=== PATIENT | male | born 1980 | race Caucasian/White ===

== ENCOUNTER 2018-12-13 19:46 | Emergency (ER) | payer OTHER ==
[~2018-12-13] VITALS: Ht 190.5 cm; Wt 104.3 kg
[~2018-12-13 19:46] MED LIST: B/P MEDS; HYDR-4226 PO; NAPR-1071 PO; norflex PO
--- NOTE | 2018-12-13 20:01 | NUR ---
PT REFUSES IV AND IVF STATING, "I DON'T WANT TO RUIN MY HIGH. I PAID A LOT OF MONEY FOR THIS IV METH AND I DON'T WANT TO LOSE IT."
[2018-12-13] MEDS ORDERED: NS IV 1000 ML 1,000 ML IV ONE (20:04)
[2018-12-13] MEDS ORDERED: IOHEXOL 350 MG/ML 100 ML (OMNIPAQUE 350) VIAL IV ONE (20:15)
[2018-12-13] MEDS ORDERED: HOLD METFORMIN - RECEIVED CONTRAST 20 ML VIAL IV SCH (20:15)
[2018-12-13] MEDS ORDERED: NS 100 ML (IVPB) BAG IV ONE (20:15)
[2018-12-13 20:22] LABS: BASOPHILS % (AUTO) 0 % (0-10); EOSINOPHILS # (AUTO) 0.4 10^3/uL (0.0-0.3); EOSINOPHILS % (AUTO) 7 % (0-10); HEMATOCRIT 44 % (40-54); HEMOGLOBIN 15.1 G/DL (13.3-17.7); LYMPHOCYTES # (AUTO) 1.2 X 10^3 (1.0-4.0); LYMPHOCYTES % (AUTO) 22 % (12-44); MEAN CORPUSCULAR HEMOGLOBIN 32 PG (25-34); MEAN CORPUSCULAR HGB CONC 34 G/DL (32-36); MEAN CORPUSCULAR VOLUME 94 FL (80-99); MEAN PLATELET VOLUME 9.8 FL (7.4-10.4); MONOCYTES # (AUTO) 0.3 X 10^3 (0.0-1.0); MONOCYTES % (AUTO) 5 % (0-12); NEUTROPHILS # (AUTO) 3.4 X 10^3 (1.8-7.8); NEUTROPHILS % (AUTO) 66 % (42-75); PLATELET COUNT 184 10^3/uL (130-400); WHITE BLOOD COUNT 5.2 10^3/uL (4.3-11.0)
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
[2018-12-13 20:40] LABS: ALANINE AMINOTRANSFERASE 31 U/L (0-55); ALBUMIN 4.8 GM/DL (3.2-4.5); ALKALINE PHOSPHATASE 50 U/L (40-136); BILIRUBIN,TOTAL 0.4 MG/DL (0.1-1.0); BUN/CREATININE RATIO 12; CALCIUM 9.4 MG/DL (8.5-10.1); CARBON DIOXIDE 24 MMOL/L (21-32); CHLORIDE 107 MMOL/L (98-107); CREATININE SERUM 1.08 MG/DL (0.60-1.30); GFR ESTIMATED > 60; GLUCOSE 105 MG/DL (70-105); POTASSIUM 4.3 MMOL/L (3.6-5.0); SODIUM 144 MMOL/L (135-145); TOTAL PROTEIN 7.3 GM/DL (6.4-8.2)
[2018-12-13 21:00] VITALS: BP 159/100
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
== END 2018-12-13 21:05 | disposition left against medical advice (07) ==
LOC: EDUNIT# 19:46 → ER 19:48
DX: F15.10 Other stimulant abuse, uncomplicated (principal); F11.10 Opioid abuse, uncomplicated; F14.10 Cocaine abuse, uncomplicated; F19.10 Other psychoactive substance abuse, uncomplicated; R00.0 Tachycardia, unspecified; R07.89 Other chest pain; I10 Essential (primary) hypertension; F17.210 Nicotine dependence, cigarettes, uncomplicated; V19.9XXA Pedal cyclist (driver) (passenger) injured in unspecified traffic accident, initial encounter
CPT/HCPCS: 36415; 71046; 71100; 80053; 80320; 85025

== ENCOUNTER 2018-12-17 14:30 | Emergency (ER) | payer OTHER ==
[~2018-12-17] VITALS: Ht 190.5 cm; Wt 104.3 kg
[2018-12-17] MEDS ORDERED: HYDROcodone/APAP 5 MG/325 MG (LORTAB) TAB PO ONE (14:45)
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
[2018-12-17] MEDS ORDERED: NS IV 1000 ML 1,000 ML IV SCH (14:57)
[2018-12-17 15:08] LABS: BASOPHILS % (AUTO) 0 % (0-10); EOSINOPHILS # (AUTO) 0.2 10^3/uL (0.0-0.3); EOSINOPHILS % (AUTO) 3 % (0-10); HEMATOCRIT 43 % (40-54); HEMOGLOBIN 14.7 G/DL (13.3-17.7); LYMPHOCYTES % (AUTO) 17 % (12-44); MEAN CORPUSCULAR HEMOGLOBIN 32 PG (25-34); MEAN CORPUSCULAR HGB CONC 35 G/DL (32-36); MEAN CORPUSCULAR VOLUME 92 FL (80-99); MEAN PLATELET VOLUME 9.3 FL (7.4-10.4); MONOCYTES # (AUTO) 0.4 X 10^3 (0.0-1.0); MONOCYTES % (AUTO) 6 % (0-12); NEUTROPHILS # (AUTO) 4.3 X 10^3 (1.8-7.8); NEUTROPHILS % (AUTO) 73 % (42-75); PLATELET COUNT 176 10^3/uL (130-400); RED CELL DISTRIBUTION WIDTH 12.7 % (10.0-14.5); WHITE BLOOD COUNT 5.9 10^3/uL (4.3-11.0)
[2018-12-17] MEDS ORDERED: IOHEXOL 350 MG/ML 100 ML (OMNIPAQUE 350) VIAL IV ONE (15:15)
[2018-12-17] MEDS ORDERED: HOLD METFORMIN - RECEIVED CONTRAST 20 ML VIAL IV SCH (15:15)
[2018-12-17] MEDS ORDERED: NS 100 ML (IVPB) BAG IV ONE (15:15)
[2018-12-17 15:25] LABS: ALANINE AMINOTRANSFERASE 20 U/L (0-55); ALBUMIN 4.4 GM/DL (3.2-4.5); ALKALINE PHOSPHATASE 47 U/L (40-136); BILIRUBIN,TOTAL 0.7 MG/DL (0.1-1.0); BUN/CREATININE RATIO 16; CALCIUM 8.8 MG/DL (8.5-10.1); CARBON DIOXIDE 23 MMOL/L (21-32); CHLORIDE 106 MMOL/L (98-107); CREATININE SERUM 0.79 MG/DL (0.60-1.30); GFR ESTIMATED > 60; GLUCOSE 116 MG/DL (70-105); SODIUM 139 MMOL/L (135-145); TOTAL PROTEIN 6.7 GM/DL (6.4-8.2)
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
[2018-12-17] MEDS ORDERED: NAPR-1071 PO (15:44)
[2018-12-17 15:51] VITALS: BP 128/82
== END 2018-12-17 15:51 | disposition home or self-care (01) ==
LOC: EDUNIT# 14:30 → ER 14:32
DX: R16.1 Splenomegaly, not elsewhere classified (principal); I10 Essential (primary) hypertension; Z87.891 Personal history of nicotine dependence; V19.9XXA Pedal cyclist (driver) (passenger) injured in unspecified traffic accident, initial encounter
CPT/HCPCS: 36415; 74177; 80053; 85025

== ENCOUNTER 2019-01-26 16:48 | Emergency (ER) | payer OTHER ==
[~2019-01-26] VITALS: Ht 190.5 cm; Wt 104.3 kg
--- NOTE | 2019-01-26 17:07 | ED General ---
General Stated Complaint: OFF OF ANTIDEPRESSANTS AND ANXIETY RX Source of Information: Patient (ELI CARDONA DO) History of Present Illness Date Seen by Provider: Jan 26, 2019 Time Seen by Provider: 17:02 Initial Comments 38-year-old male presents with depression, situational stress and suicidal ideation. 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 Patient was kicked out of his home according to PD. Patient reports that he is off his medication for depression and anxiety. Patient does not report a suicidal plan. Patient does have previous attempts and previous hospitalizations. (ELI CARDONA DO) Allergies and Home Medications Allergies Coded Allergies: No Known Drug Allergies (Unverified , 11/24/15) Home Medications Hydrocodone/Acetaminophen 1 Each Tablet, 1 EACH PO Q4H PRN for PAIN Prescribed by: SIXTO DELGADO on 11/24/15 1245 Naproxen 500 Mg Tablet, 500 MG PO BID Prescribed by: SIXTO DELGADO on 11/24/15 1107 Naproxen 500 Mg Tablet, 500 MG PO BID Prescribed by: ROMAN GRANADOS on 12/17/18 1544 [norflex] , 100 MG PO BID PRN for PAIN Prescribed by: SIXTO DELGADO on 11/24/15 1107 Patient Home Medication List Home Medication List Reviewed: Yes (ELI CARDONA DO) Review of Systems Review of Systems Constitutional: No chills, No fever EENTM: no symptoms reported Respiratory: no symptoms reported Cardiovascular: no symptoms reported Gastrointestinal: no symptoms reported Genitourinary: no symptoms reported Skin: no symptoms reported Psychiatric/Neurological: See HPI, Anxiety, Depressed (ELI CARDONA DO) Past Cjzltfn-Czsyri-Arunnk Hx Past Med/Social Hx: Reviewed Nursing Past Med/Soc Hx (ELI CARDONA DO) Patient Social History Alcohol Beverage of Choice: Vodka Drug of Choice: OPIATES, IV METH, COCAINE, DILAUDID Type Used: Cigarettes, Smokeless Tobacco 2nd Hand Smoke Exposure: No Recent Foreign Travel: No Contact w/Someone Who Travel: No Recent Hopitalizations: No (ELI CARDONA DO) Seasonal Allergies Seasonal Allergies: No (ELI CARDONA DO) Past Medical History Surgeries: No Respiratory: No Cardiac: Yes Hypertension Neurological: No Sexually Transmitted Disease: No HIV/AIDS: No Genitourinary: No Gastrointestinal: No Musculoskeletal: No Endocrine: No HEENT: No Cancer: No Psychosocial: No Integumentary: No Blood Disorders: No (CARDONA,ELI L DO) Physical Exam Vital Signs Vital Signs - First Documented 01/26/19 17:05 Temp 97.6 Pulse 89 Resp 18 B/P (MAP) 139/94 (109) Pulse Ox 98 O2 Delivery Room Air (ROMAN GRANADOS) Vital Signs Capillary Refill : (CARDONA,ELI L DO) Height, Weight, BMI Height: 6'3.00" Weight: 230lbs. oz. 104.675956sn; BMI Method:Stated General Appearance: No Apparent Distress, WD/WN Eyes: Bilateral Eye Normal Inspection, Bilateral Eye PERRL Neck: Non Tender Respiratory: Chest Non Tender, Lungs Clear, Normal Breath Sounds Cardiovascular: Regular Rate, Rhythm Gastrointestinal: Non Tender, Soft Extremity: Normal Capillary Refill Neurologic/Psychiatric: Alert, Oriented x3, No Motor/Sensory Deficits Skin: Tattoos/Piercings (track stephanie in left antecubital space) (CARDONA,ELI L DO) Progress/Results/Core Measures Suspected Sepsis SIRS Temperature: Pulse: Respiratory Rate: Blood Pressure / Mean: (CARDONA,ELI L DO) Results/Orders Lab Results Laboratory Tests Test 01/26/19 17:11 01/26/19 18:26 Range/Units White Blood Count 6.5 4.3-11.0 10^3/uL Red Blood Count 4.34 L 4.35-5.85 10^6/uL Hemoglobin 13.7 13.3-17.7 G/DL Hematocrit 39 L 40-54 % Mean Corpuscular Volume 90 80-99 FL Mean Corpuscular Hemoglobin 32 25-34 PG Mean Corpuscular Hemoglobin Concent 35 32-36 G/DL Red Cell Distribution Width 13.7 10.0-14.5 % Platelet Count 188 130-400 10^3/uL Mean Platelet Volume 9.0 7.4-10.4 FL Neutrophils (%) (Auto) 67 42-75 % Lymphocytes (%) (Auto) 19 12-44 % Monocytes (%) (Auto) 7 0-12 % Eosinophils (%) (Auto) 6 0-10 % Basophils (%) (Auto) 0 0-10 % Neutrophils # (Auto) 4.3 1.8-7.8 X 10^3 Lymphocytes # (Auto) 1.2 1.0-4.0 X 10^3 Monocytes # (Auto) 0.5 0.0-1.0 X 10^3 Eosinophils # (Auto) 0.4 H 0.0-0.3 10^3/uL Basophils # (Auto) 0.0 0.0-0.1 10^3/uL Sodium Level 140 135-145 MMOL/L Potassium Level 3.5 L 3.6-5.0 MMOL/L Chloride Level 103 98-107 MMOL/L Carbon Dioxide Level 24 21-32 MMOL/L Anion Gap 13 5-14 MMOL/L Blood Urea Nitrogen 14 7-18 MG/DL Creatinine 0.91 0.60-1.30 MG/DL Estimat Glomerular Filtration Rate > 60 BUN/Creatinine Ratio 15 Glucose Level 125 H 70-105 MG/DL Calcium Level 9.0 8.5-10.1 MG/DL Corrected Calcium 8.8 8.5-10.1 MG/DL Total Bilirubin 0.8 0.1-1.0 MG/DL Aspartate Amino Transf (AST/SGOT) 20 5-34 U/L Alanine Aminotransferase (ALT/SGPT) 23 0-55 U/L Alkaline Phosphatase 51 40-136 U/L Total Protein 6.7 6.4-8.2 GM/DL Albumin 4.2 3.2-4.5 GM/DL Salicylates Level < 5.0 L 5.0-20.0 MG/DL Acetaminophen Level < 10 L 10-30 UG/ML Serum Alcohol < 10 <10 MG/DL Urine Color JAS H Urine Clarity CLEAR Urine pH 5 5-9 Urine Specific [place] 1.030 H 1.016-1.022 Urine Protein 2+ H NEGATIVE Urine Glucose (UA) NEGATIVE NEGATIVE Urine Ketones 1+ H NEGATIVE Urine Nitrite NEGATIVE NEGATIVE Urine Bilirubin 1+ H NEGATIVE Urine Urobilinogen 1 NORMAL MG/DL Urine Leukocyte Esterase 1+ H NEGATIVE Urine RBC (Auto) NEGATIVE NEGATIVE Urine RBC NONE /HPF Urine WBC 2-5 /HPF Urine Squamous Epithelial Cells NONE /HPF Urine Renal Epithelial Cells 0-2 /HPF Urine Crystals NONE /LPF Urine Bacteria LARGE H /HPF Urine Casts NONE /LPF Urine Mucus LARGE H /LPF Urine Culture Indicated NO Urine Opiates Screen NEGATIVE NEGATIVE Urine Oxycodone Screen NEGATIVE NEGATIVE Urine Methadone Screen NEGATIVE NEGATIVE Urine Propoxyphene Screen NEGATIVE NEGATIVE Urine Barbiturates Screen NEGATIVE NEGATIVE Ur Tricyclic Antidepressants Screen NEGATIVE NEGATIVE Urine Phencyclidine Screen NEGATIVE NEGATIVE Urine Amphetamines Screen POSITIVE H NEGATIVE Urine Methamphetamines Screen NEGATIVE NEGATIVE Urine Benzodiazepines Screen NEGATIVE NEGATIVE Urine Cocaine Screen NEGATIVE NEGATIVE Urine Cannabinoids Screen NEGATIVE NEGATIVE (ROMAN GRANADOS) My Orders Orders - ROMAN GRANADOS General/Regular (01/27/19 Breakfast) (ROMAN GRANADOS) Vital Signs/I&O 01/26/19 01/26/19 17:05 23:15 Temp 97.6 97.6 Pulse 89 89 Resp 18 18 B/P (MAP) 139/94 (109) 139/94 (109) Pulse Ox 98 98 O2 Delivery Room Air (ROMAN GRANADOS) Vital Signs/I&O Capillary Refill : (ELI CARDONA DO) Progress Note #1: Time: 17:57 Progress Note Assume care of the patient at shift change. Discussed the case with Dr. Cardona and discussed the case with patient and agree with the above documented history and physical exam and review of systems. Patient has stated that he would step out of the car or/his wrists like he has attempted the past. He admits that he uses methamphetamines by ingestion, smoking and injection and his last use was sometime this morning. He is very depressed as been off his medications which include propranolol, Seroquel and a third unknown medication. He sees someone at [facility] for his medication. He is not sure how long he been off of them. He is voluntary to go to a inpatient psychiatric facility and feels this is the best course. We have provided him with some oral fluids in an attempt to encourage him to produce a urine specimen. Progress Note #2: Time: 23:36 Progress Note Patient has been cooperative, sleeping most of the time. We have attempted to find him placement at [facility] but they're both at capacity. [place] is also at capacity. The looked at [facility] but they have 13 cases in their ER to go through first. [facility] has declined. Sonido Dash at [place] said they will call us back. If we don't hear from them in the next hour we will call them. If we cannot find placement for him were going to call [facility] and have the screener come out and talk to the patient about possibly going home. Progress Note #3: Time: 00:15 Progress Note Sonido Dash called. Vitals from the patient which are normal 64 heart rate, 14 rest burst, 99% on room air no pain in the 122/72 still endorsing suicidal ideations passively. They want to speak to the patient so we put him on the phone with him. Progress Note #4: Time: 01:46 Progress Note Isabel olivares arrived to pickle sorter the patient however the patient asked to have his belt since his pants were falling down. Staff, explained that since he is suicidal we will not be giving him his belt as it could be used to harm himself and the patient became argumentative and started cussing and said that he had his lorenzo before and wants her back now since its his personal belongings. Because he threw a fit and refused to cooperate tracing all has declined the transport this time. There is no one available transport. We have called [facility] and they are going to come out and screen him for a safety plan. Progress Note #5: Time: 02:40 Progress Note [facility] screener has arrived has spoke with the patient and no safety plan can be arrived at because the patient says if he leaves here he will kill himself. He is no longer being actively belligerent and has been offered a meal which he accepted. We attempted tracing knowing can and he has declined transport the patient. We have talked to [facility] Dash and they do not have a transporter. (ROMAN GRANADOS) Progress Note #1: Time: 07:01 Progress Note Patient resting peacefully. Awoke for exam. Heart is regular in rate and rhythm and lungs are clear to auscultation. He has no complaints of pain or concerns. Offered breakfast. We're still pending transfer and we are trying to determine mode of transportation. His stepfather was called and he has declined to do the transport. We are still waiting with [facility] to see if they have somebody available for transport and patient. At this point we still have a bed available at [facility] in [place]. Continue to monitor. Progress Note #2: Time: 08:54 Progress Note Patient awoke and became quite aggressive both verbally and pacing which was very concerning for staff. He was not really resolving with verbal calming measures and there is concern for safety of staff and other patients so police were called. They have arrived. Patient patient is still quite aggressive. I was able to give him some Zyprexa earlier and he took that. It is not working as of yet. Patient is quite disorderly and long force will take the patient to detention awaiting transfer with [facility]. Patient is medically cleared for inpatient psychiatric treatment. Discharged with law enforcement. (TYREL HU MD) ECG Initial ECG Impression Date: Jan 26, 2019 Initial ECG Impression Time: 17:04 Initial ECG Rhythm: Normal Sinus Initial ECG Intervals: QRS (116) Initial ECG Impression: Nonspecific Changes Initial ECG Comparisson: No Previous ECG Available (ELI CARDONA DO) Departure Impression Primary Impression: Depression with suicidal ideation Additional Impressions: Aggressive behavior of adult Drug abuse Disposition: [address]/LAW ENFORCE Condition: Stable Transfer Time Spoke to Accepting Phy: 00:[address] Pir Purdy accepting for unspecified depressive disorder to [facility]. room assignment made. Isabel Saeed Will be here to transport in 30 minutes. Transfer Facility: [facility] Method of Transfer: Private Vehicle ([facility]) (ROMAN GRANADOS) Departure-Patient Inst. Decision time for Depature: 08:58 (TYREL HU MD) Referrals: [facility] (PCP/Family) Primary Care Physician Patient Instructions: Depression, Adult (DC), Drug Abuse and Drug Addiction (DC) Add. Discharge Instructions: Discharge with law enforcement. You are medically cleared for incarceration and for mental health inpatient treatment. Return for other concerns as needed. ELI CARDONA DO Jan 26, 2019 17:06 ROMAN GRANADOS Jan 26, 2019 18:00 TYREL HU MD Jan 27, 2019 07:52
[2019-01-26 17:27] LABS: BASOPHILS % (AUTO) 0 % (0-10); EOSINOPHILS # (AUTO) 0.4 10^3/uL (0.0-0.3); EOSINOPHILS % (AUTO) 6 % (0-10); HEMATOCRIT 39 % (40-54); HEMOGLOBIN 13.7 G/DL (13.3-17.7); LYMPHOCYTES # (AUTO) 1.2 X 10^3 (1.0-4.0); LYMPHOCYTES % (AUTO) 19 % (12-44); MEAN CORPUSCULAR HEMOGLOBIN 32 PG (25-34); MEAN CORPUSCULAR HGB CONC 35 G/DL (32-36); MEAN CORPUSCULAR VOLUME 90 FL (80-99); MONOCYTES # (AUTO) 0.5 X 10^3 (0.0-1.0); MONOCYTES % (AUTO) 7 % (0-12); NEUTROPHILS # (AUTO) 4.3 X 10^3 (1.8-7.8); NEUTROPHILS % (AUTO) 67 % (42-75); PLATELET COUNT 188 10^3/uL (130-400); RED CELL DISTRIBUTION WIDTH 13.7 % (10.0-14.5); WHITE BLOOD COUNT 6.5 10^3/uL (4.3-11.0)
[2019-01-26 17:42] LABS: ALANINE AMINOTRANSFERASE 23 U/L (0-55); ALBUMIN 4.2 GM/DL (3.2-4.5); ALKALINE PHOSPHATASE 51 U/L (40-136); BILIRUBIN,TOTAL 0.8 MG/DL (0.1-1.0); BUN/CREATININE RATIO 15; CARBON DIOXIDE 24 MMOL/L (21-32); CHLORIDE 103 MMOL/L (98-107); CREATININE SERUM 0.91 MG/DL (0.60-1.30); GFR ESTIMATED > 60; GLUCOSE 125 MG/DL (70-105); POTASSIUM 3.5 MMOL/L (3.6-5.0); SALICYLATE < 5.0 MG/DL (5.0-20.0); SODIUM 140 MMOL/L (135-145); TOTAL PROTEIN 6.7 GM/DL (6.4-8.2)
[2019-01-26 18:12] LABS: ACETAMINOPHEN < 10 UG/ML (10-30)
--- NOTE | 2019-01-26 18:27 | NUR ---
[facility] NOTIFIED FOR SCREENING. FACE SHEET FAXED AT THIS TIME.
[2019-01-26 18:32] LABS: BILIRUBIN,URINE 1+ (NEGATIVE); CLARITY,URINE CLEAR; COLOR,URINE AMBER; GLUCOSE, URINE (UA) NEGATIVE (NEGATIVE); KETONES,URINE 1+ (NEGATIVE); LEUKOCYTE ESTERASE ,URINE 1+ (NEGATIVE); NITRITE,URINE NEGATIVE (NEGATIVE); PH,URINE 5 (5-9); PROTEIN,URINE 2+ (NEGATIVE); UROBILINOGEN,URINE 1 MG/DL (NORMAL)
[2019-01-26 18:44] LABS: AMPHETAMINE SCREEN, URINE POSITIVE (NEGATIVE); BARBITURATE SCREEN URINE NEGATIVE (NEGATIVE); BENZODIAZEPINES SCREEN URINE NEGATIVE (NEGATIVE); CANNABINOID SCREEN, URINE NEGATIVE (NEGATIVE); COCAINE SCREEN URINE NEGATIVE (NEGATIVE); METHADONE STAT NEGATIVE (NEGATIVE); METHAMPHETAMINE SCREEN URINE S NEGATIVE (NEGATIVE); OPIATE SCREEN URINE NEGATIVE (NEGATIVE); OXYCODONE STAT NEGATIVE (NEGATIVE); PROPOXYPHENE STAT NEGATIVE (NEGATIVE); TRICYCLIC ANTIDEPRESSANTS SCRE NEGATIVE (NEGATIVE)
--- NOTE | 2019-01-26 18:44 | NUR ---
[facility] LINE STATES TO CALL HOSPITALS FOR ADMISSION. IF MENTAL STATUS CHANGES, NON COOPERATIVE WITH VOLUNTARY COMMITMENT THEN CALL [facility] FOR IN PERSON SCREENING.
[2019-01-26 18:48] LABS: BACTERIA,URINE LARGE /HPF; RENAL EPITHELIAL CELLS,URINE 0-2 /HPF
--- NOTE | 2019-01-26 18:56 | NUR ---
[facility] CONTACTED AT THIS TIME. WILL FAX INFO AT THIS TIME.
--- NOTE | 2019-01-26 19:34 | NUR ---
CALL PLACED TO [facility] TO CONFIRM FAX WAS RECEIVED
--- NOTE | 2019-01-26 20:04 | NUR ---
[facility] IS NO LONGER ACCEPTING PATIENTS TODAY.
--- NOTE | 2019-01-26 20:08 | NUR ---
[facility] IS NOT CURRENTLY ACCEPTING PSYCH PATIENTS.
--- NOTE | 2019-01-26 20:49 | NUR ---
[facility] IS NOT CURRENTLY ACCEPTING PSYCH PATIENTS.
--- NOTE | 2019-01-26 20:56 | NUR ---
[facility] is full. Left voicemail for Marge Vancouver, waiting for call back. [facility] will be calling back.
--- NOTE | 2019-01-26 21:04 | NUR ---
PT RESTING AT THIS TIME.
--- NOTE | 2019-01-26 21:16 | NUR ---
faxed patient info to Sonido Alfaro
--- NOTE | 2019-01-26 22:00 | NUR ---
THIS RN WOKE PT UP, PT STATES HE IS "KIND OF FEELING SUICIDAL" THIS RN STATES TO PT WHICH HOSPITALS ARE NOT ACCEPTING PATIENTS.
--- NOTE | 2019-01-26 22:53 | NUR ---
[facility] HAS 13 PATIENTS IN THEIR OWN ER THAT THEY ARE WAITING TO ASSESS FOR PSYCH ADMISSION. JOHN PRATER GOT THE FAX AND STATES THEY ARE PASSING THE INFO OFF TO THE SHIFT THAT COMES IN AT 2330.
--- NOTE | 2019-01-26 23:01 | NUR ---
REPORT TO JUSTIN KEMP FOR CONTINUED CARE
--- NOTE | 2019-01-26 23:10 | NUR ---
ASSUMED CARE OF THIS PATIENT AT THIS TIME, IN ROOM TO ASSESS AND INTRODUCED SELF TO PATIENT. PATIENT DENIES NEEDS AT THIS TIME. NOTIFIED PATIENT WE ARE WAITING FOR REPONSE FROM [facility] FOR ACCEPTANCE/ROOM. FREQUENT MONITORING MAINTAINED. CLOSE TO NURSES DESK WITH VISUAL MONITORING MAINTAINED.
[2019-01-26 23:15] VITALS: BP 139/94
--- NOTE | 2019-01-27 | NUR ---
VISUAL MONITORING MAINTAINED FOR THIS PATIENT. RESTING QUIETLY AT THIS TIME. SAFETY PROTOCOLS IN PLACE.
--- NOTE | 2019-01-27 00:54 | NUR ---
[facility] NURSE LUCI GIVEN REPOT FOR THIS PATIENT . DR GRANADOS CALLED [facility] FOR PATIENT TRANSPORT TO [facility]
--- NOTE | 2019-01-27 00:55 | NUR ---
PATIENT GIVEN HIS CLOTHING TO PUT ON TO PREPARE FOR TRANSPORT.
--- NOTE | 2019-01-27 01:10 | NUR ---
[facility] HERE TO TRANSPORT PATIENT AT THIS TIME. PATIENT DEMANDING HIS BELONGINGS AND SPECIFICALLY HIS BELT. PATIENT BECAME LOUD AND ARGUMENTITIVE WHEN TOLD HE WAS NOT ALLOWED TO HAVE HIS BELONGINGS OR BELT AT THIS TIME D/T HIS SUICIDAL IDEATION. PATIENT AGAIN ARGUMENTITIVE. [facility] DECLINES TO TAKE PATIENT D/T PATIENT AGITATION.
--- NOTE | 2019-01-27 01:15 | NUR ---
DR GRANADOS INSTRUCTS THIS RN TO CONTACT [facility] AND HAVE A SCREENER COME TO THE ER TO ASSESS THE PATIENT. CONTACTED RICH DOLAN WHO STATES SHE WILL COME TO SCREEN THE PATIENT.
--- NOTE | 2019-01-27 01:45 | NUR ---
[facility] WILL COME ASSESS PATIENT FOR A SAFETY PLAN AND OUT PATIENT CARE.
--- NOTE | 2019-01-27 02:00 | NUR ---
Narciso gaines in [facility] - 01/27/19 at 0242 by [id number] [facility] SCREENER ARRIVES TO SEE PATIENT.
[2019-01-27 02:15] VITALS: BP 129/74
--- NOTE | 2019-01-27 02:15 | NUR ---
[facility] ARRIVES TO ASSESS PATIENT.
--- NOTE | 2019-01-27 02:15 | NUR ---
YOAV ASCENCIOJameel IN ROOM WITH PATIENT UNTIL 0235.
--- NOTE | 2019-01-27 02:37 | NUR ---
CALLED [facility] TO INQUIRE IF THEY COULD SUPPLY TRANSPORTATION TO THEIR FACILITY FOR THIS PATIENT, THEY DO NOT PROVIDE TRANSPORTATION. DR GRANADOS AND [facility] SCREENER NOTIFIED.
--- NOTE | 2019-01-27 03:12 | NUR ---
SPOKE TO ESTELA ARTEAGA [facility] SHE ASKS THAT THIS RN CALL [facility] TO SEE IF THEY WILL PROVIDE TRANSPORT FOR THIS PATIENT.
--- NOTE | 2019-01-27 03:20 | NUR ---
[facility] CALLED AND INFORMED OF THE NEED FOR TRANSPORT TO [facility]. [facility] STATES THEY CAN NOT PROVIDE TRANSPORT AT THIS TIME.
--- NOTE | 2019-01-27 03:22 | NUR ---
ESTELA AGAIN NOTIFIED [facility] CANNOT PROVIDE TRANSPORTATION AT THIS TIME. SHE STATES HER STAFF WILL REGROUP IN THE MORNING AND TRY TO SECURE TRANSPORT.
--- NOTE | 2019-01-27 03:30 | NUR ---
TO ROOM TO CHECK ON PATIENT, PATIENT WAKES EASILY DENIES NEEDS AT THIS TIME. VISUAL MONITORING MAINTAINED.
--- NOTE | 2019-01-27 04:22 | NUR ---
PATIENT IS RESTING QUIETLY, APPEARS ASLEEP. FREQUENT VISUAL MONITORING MAINTAINED. CALL LIGHT IN REACH OF PATIENT BED.
--- NOTE | 2019-01-27 05:15 | NUR ---
VISUAL ASSESSMENT OF PATIENT FINDS HIM RESTING QUIETLY IN BED WITH EYES CLOSED. APPEARS TO BE ASLEEP. FREQUENT MONITORING MAINTAINED SAFETY MEASURES IN PLACE, CALL LIGHT IN REACH.
--- NOTE | 2019-01-27 06:12 | NUR ---
VISUAL ASSESSMENT OF PATIENT MAINTAINED HOURLY AND PRN. PATIENT APPEARS ASLEEP AT THIS TIME. CALL FROM [facility] CONFIRMING PATIENT IS STILL COMING.
--- NOTE | 2019-01-27 06:14 | NUR ---
[facility] STAFF CALLED TO ASK WE PLEASE CALL AND GIVE ETA WHEN TRANSPORTATION SITUATION IS WORKED OUT FOR THIS PATIENT. Addendum: 01/27/19 at 0616 by [id number] [phone]
--- NOTE | 2019-01-27 06:21 | NUR ---
PATIENT PROVIDED NUMBER OF PARENTS CALLED ([phone]), THIS RN SPOKE WITH PATIENT STEP DAD AND INFORMED HIM THE PATIENT REQUESTED WE CALL AND ASK IF THEY MAY BE ABLE TO PROVIDE TRANSPORTATION TO [facility]. THE FAMILY DECLINED. DR HU WHO HAS ASSUMED CARE OF THIS PATIENT IS INFORMED.
--- NOTE | 2019-01-27 07:00 | NUR ---
REPORT GIVEN TO LADONNA ANDERSON TO CONTINUATION OF CARE.
--- NOTE | 2019-01-27 07:30 | NUR ---
pt resting with eyes closed at this time. pt alert to verbal stimuli. Pt informed when he feels like eating he may order a meal tray for breakfast. Pt appears in no obvious distress at this time.
--- NOTE | 2019-01-27 08:30 | NUR ---
PT VERBALLY AGGRESSIVE WITH STAFF. STATING "I'M GOING TO FREAK OUT." "WHAT IS TAKING SO LONG!" "I'M GOING CRAZY." , "I'M GETTING FUCKING ANGRY." "NO ONE IS HELPING ME." "WHERE'S MY FUCKING BREAKFAST." PT HANDED A MENU TO PICK OUT HIS BREAKFAST. PT REPORTS, "I DON'T FUCKING KNOW WHAT I WANT." "JUST FUCKING ORDER IT.!" "I NEED SOCKS TOO."
--- NOTE | 2019-01-27 08:35 | NUR ---
Pt's behavior escalating. Pt yelling at nurse and doctor stating, "I am going to freak out." [employer] called at this time.
[2019-01-27] MEDS ORDERED: OLANZapine 5 MG ODT (ZyPREXA ZYDIS) PO ONE (08:45)
--- NOTE | 2019-01-27 08:47 | NUR ---
axel nam here at this time.
--- NOTE | 2019-01-27 08:49 | NUR ---
[employer] here at this time.
--- NOTE | 2019-01-27 09:01 | NUR ---
PT DISCHARGED TO PD AT THIS TIME.
[2019-01-27 09:03] VITALS: BP 150/70
== END 2019-01-27 09:03 ==
LOC: EDUNIT# 16:48 → ER 16:49
DX: F32.9 Major depressive disorder, single episode, unspecified (principal); R45.851 Suicidal ideations; F91.1 Conduct disorder, childhood-onset type; F15.10 Other stimulant abuse, uncomplicated; F14.10 Cocaine abuse, uncomplicated; F11.10 Opioid abuse, uncomplicated; I10 Essential (primary) hypertension; Z91.14 Patient's other noncompliance with medication regimen
CPT/HCPCS: 36415; 80053; 80306; 80320; 80329; 81000; 85025; 93005